=== PATIENT | male | born 1995 | race Caucasian/White ===

== ENCOUNTER 2019-11-14 10:43 | Emergency (ER) | payer OTHER, SELFPAY ==
[2019-11-14 10:45] VITALS: BP 124/67; PULSE 91; RESP 12; TEMP 36.7; O2SAT 97
--- NOTE | 2019-11-14 11:39 | ED_ITS ---
HPI - URI/Sore Throat <RASHMI Horn - Last Filed: 11/14/19 21:30> General Chief Complaint: Upper Respiratory Symptoms Stated Complaint: dry cough since Thursday,short of breath Time Seen by Provider: 11/14/19 11:04 Source: patient Mode of arrival: Ambulatory History of Present Illness HPI Narrative: 24-year-old male presenting to the emergency department complaining of a dry cough since Thursday. He states he feels slightly short of breath when he runs his stairs, stating that he has to stop at the top and catch his breath. He denies any history of asthma or other comorbidities. He also reports an occasional sore throat that is worse after his cough. He states the cough is worse at night. Patient denies any fevers, sputum production, nausea, vomiting, diarrhea, chest pain, dizziness, or any other concerns. He denies taking anything [id number] for symptom relief. Patient denies any known contacts with confirm COVID-19 cases. Related Data Previous Rx's Medication Instructions Recorded benzonatate [Tessalon Perles] 100 mg PO BID PRN #20 cap 11/14/19 Allergies Allergy/AdvReac Type Severity Reaction Status Date / Time No Known Drug Allergies Allergy Verified 11/14/19 10:49 Review of Systems <RASHMI Horn - Last Filed: 11/14/19 21:30> Review of Systems Narrative: REVIEW OF SYSTEMS: GENERAL: Denies fevers. HENT: No head trauma or hearing loss. EYES: No loss of vision, double vision, eye pain, irritation or discharge. CARDIOVASCULAR: No chest pain or syncope. RESPIRATORY: No shortness of breath. Reports dry cough, see HPI. GASTROINTESTINAL: No nausea, vomiting, diarrhea, or constipation. MUSCULOSKELETAL: No weakness or injury. INTEGUMENTARY: No rash, lesions, or pruritus. Patient History <RASHMI Horn - Last Filed: 11/14/19 21:30> Medical History No significant medical problems (Acute) Social History Smoking Status: Current every day smoker Smoking Status: Current every day smoker tobacco type: vaping alcohol intake frequency: 0-2 drinks per day Substance Use Type: does not use Exam <RASHMI Horn - Last Filed: 11/14/19 21:30> Initial Vital Signs Initial Vital Signs: Vital Signs Temperature 98.1 F 11/14/19 10:45 Pulse Rate 91 H 11/14/19 10:45 Respiratory Rate 12 11/14/19 10:45 Blood Pressure 124/67 11/14/19 10:45 Pulse Oximetry 97 11/14/19 10:45 PHYSICAL EXAMINATION: GENERAL: Well groomed, alert, and cooperative. Answers questions promptly and appropriately. Vital signs noted. HENT: Normocephalic, atraumatic. Ear canals patent. Oropharynx with with slight erythema. Tonsils are not present. EYES: Conjunctiva pink, sclera white, no periorbital swelling. No discharge. CHEST: Normal to inspection and without deformities. CARDIOVASCULAR: S1 and S2 sounds normal. Regular rate and rhythm, no murmurs, clicks, or bruits. RESPIRATORY: Normal respiratory rate, trachea midline, airway patent. No stridor, nasal flaring or accessory muscle use. Able to speak in full sentences. Lungs are clear in all rouse without wheeze, rhonchi, or crackles. No cough observed throughout examination. MUSCULOSKELETAL: Normal gait and coordination. Equal tone and mass bilaterally. EXTREMITIES: Moves all extremities. SKIN: Warm, dry, soft, appropriate color for ethnicity. No lesions, rashes, or wounds to visualized areas. NEURO: Alert and Oriented X 3. Good coordination. No ataxia or cognitive issues. PSYCH: Appropriate affect and mood. <Ewelina Castrejon MD - Last Filed: 11/28/19 06:57> Initial Vital Signs Initial Vital Signs: Vital Signs Temperature 98.1 F 11/14/19 10:45 Pulse Rate 91 H 11/14/19 10:45 Respiratory Rate 12 11/14/19 10:45 Blood Pressure 124/67 11/14/19 10:45 Pulse Oximetry 97 11/14/19 10:45 Course <RASHMI Horn - Last Filed: 11/14/19 21:30> Vital Signs Vital signs: Vital Signs - 8 hr 11/14/19 10:45 Temperature 98.1 F Pulse Rate 91 H Respiratory Rate 12 Blood Pressure 124/67 Pulse Oximetry 97 <Ewelina Castrejon MD - Last Filed: 11/28/19 06:57> Vital Signs Vital signs: Vital Signs - 8 hr 11/14/19 10:45 Temperature 98.1 F Pulse Rate 91 H Respiratory Rate 12 Blood Pressure 124/67 Pulse Oximetry 97 [facility] - URI/Sore Throat <RASHMI Horn - Last Filed: 11/14/19 21:30> Medical Records Attestation: I reviewed the patient's medical records. Lab Data Attestation: I reviewed the patient's lab results. [facility] Narrative Medical decision making narrative: 24-year-old male presents emergency department for dry cough for the past 3 and half days, no severe symptoms such as high fever, tachycardia, hypoxia, or dyspnea. I suspect this is most likely viral in etiology. Patient does not meet criteria for COVID-19 testing or influenza testing at this time. However, given the communal circumstances, patient was encouraged to remain in self isolation for 3 days after symptoms resolve. He was encouraged to follow up with his primary care provider, or be in touch with them via telephone if his symptoms continue over the next 2 weeks. Return precautions given for severe symptoms such as significant shortness of breath, uncontrollable vomiting, or any other concerns. Patient agreed to plan of care verbalized understanding. He was given Tessalon Perles to help with c ough and encouraged to use over the counter medications. . Discharge Plan Departure Patient Disposition: Home Clinical Impression: Upper respiratory infection Qualifiers: URI type: unspecified viral URI Qualified Code(s): J06.9 - Acute upper respiratory infection, unspecified Discharge Date/Time: 11/14/19 11:38 Instructions: DI for Viral Upper Respiratory Infection -- Adult Activity Restrictions/Additional Instructions: Thank you for entrusting me with your care today. As discussed, your symptoms are most likely caused by a viral infection. Currently at this time, due to shortages in test kits, we are very limited in testing for COVID-19. You do not meet criteria for testing at this time. Please remain in self isolation for 3 days after your cough resolves as to not spread your illness. You may take [id number] Mucinex, Tylenol, and ibuprofen especially if you develops fever. I prescribed you Tessalon Perles to help with cough. Return emergency department if you developed severe shortness of breath that does not allow you to walk across the room, fevers that do not decreased with Tylenol or ibuprofen, uncontrollable vomiting, or other concerns. Please follow up with your primary care provider in 2 weeks if your symptoms continue. Prescriptions: New benzonatate [Tessalon Perles] 100 mg capsule 100 mg PO BID PRN (Reason: cough) Qty: 20 RF: 0
== END 2019-11-14 11:38 | disposition home or self-care (01) ==
PROVIDERS: Emergency Provider Nurse Practitioner
DX: J06.9 Acute upper respiratory infection, unspecified (principal)
CPT/HCPCS: 99281